=== PATIENT | female | born 1950 | race Caucasian/White ===

== ENCOUNTER 2017-04-03 16:24 | Emergency (ER) | payer MEDICARE, OTHER ==
[2017-04-03] MEDS ORDERED: Acetaminophen/HYDROcodone 325-10 MG Tab PO ONE (16:25)
[2017-04-03 16:56] VITALS: BP 141/59
--- NOTE | 2017-04-03 18:59 | EDM.PDOC ---
<Justin Lyman - Last Filed: 04/03/17 18:54> ED HPI GENERAL MEDICAL PROBLEM - General Chief Complaint: Back Pain or Injury Stated Complaint: LOWER BACK PAINS [id number] Time Seen by Provider: 04/03/17 18:54 Source of Information: Reports: Patient History Limitations: Reports: No Limitations - History of Present Illness INITIAL COMMENTS - FREE TEXT/NARRATIVE: 66 yo white female c/o low back pain on 7 days ago. PMHx. Lumbar DDD ( Chronic) . Pt. also concerned about UTI Onset Date: 03/29/17 Onset Time: 12:00 Duration: Day(s):, Getting Worse Location: Reports: Back (low back) Quality: Reports: Ache Severity: Moderate Improves with: Reports: None Worsens with: Reports: None Context: Reports: Other (Hx. of Spondylithesis) Associated Symptoms: Reports: No Other Symptoms Lower Back Pain Score (Numeric/FACES): 10 - Related Data Allergies Allergy/AdvReac Type Severity Reaction Status Date / Time Sulfa (Sulfonamide Allergy Rash Verified 04/03/17 16:43 Antibiotics) Home Meds: Home Meds Ca Carbonate/Vitamin D3/Vit K [Calcium + D Soft Chewable Tab] 1 each PO DAILY [History] Citalopram Hydrobromide [Celexa] 40 mg PO DAILY 04/03/17 [History] Nitrofurantoin Lares/Macrocryst [Macrobid] 1 cap PO BID 04/03/17 [History] Omeprazole 20 mg PO DAILY 04/03/17 [History] methylPREDNISolone [Medrol] 1 tab PO ASDIRECTED 04/03/17 [History] traMADol [Ultram] 50 mg PO Q6H PRN 04/03/17 [History] Past Medical History HEENT History: Reports: Cataract, Impaired Vision Cardiovascular History: Reports: None Respiratory History: Reports: Asthma Gastrointestinal History: Reports: GERD Genitourinary History: Reports: None 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 Musculoskeletal History: Reports: Arthritis, Fracture, Other (See Below) Other Musculoskeletal History: spondylolisthesis, TMJ Neurological History: Reports: Headaches, Chronic Psychiatric History: Reports: Depression Endocrine/Metabolic History: Reports: None Hematologic History: Reports: Blood Transfusion(s) Immunologic History: Reports: None Oncologic (Cancer) History: Reports: Malignant Melanoma Dermatologic History: Reports: Eczema, Psoriasis - Infectious Disease History Infectious Disease History: Reports: Chicken Pox, Measles - Past Surgical History HEENT Surgical History: Reports: None Cardiovascular Surgical History: Reports: None Respiratory Surgical History: Reports: None GI Surgical History: Reports: Appendectomy Female Surgical History: Reports: Hysterectomy, Oophorectomy Endocrine Surgical History: Reports: Other (See Below) Other Endocrine Surgeries/Procedures: goiter removed Neurological Surgical History: Reports: None Musculoskeletal Surgical History: Reports: None Oncologic Surgical History: Reports: None Dermatological Surgical History: Reports: None Social & Family History - Tobacco Use Smoking Status *Q: Never Smoker - Caffeine Use Caffeine Use: Reports: Coffee, Tea - Alcohol Use Days Per Week of Alcohol Use: 1 Number of Drinks Per Day: 2 Total Drinks Per Week: 2 - Recreational Drug Use Recreational Drug Use: No ED ROS GENERAL - Review of Systems Review Of Systems: See Below Constitutional: Reports: No Symptoms HEENT: Reports: No Symptoms Respiratory: Reports: No Symptoms Cardiovascular: Reports: No Symptoms Endocrine: Reports: No Symptoms GI/Abdominal: Reports: No Symptoms : Reports: Frequency Musculoskeletal: Reports: Back Pain Skin: Reports: No Symptoms Neurological: Reports: Tingling (bilat lower extremity) Psychiatric: Reports: No Symptoms Hematologic/Lymphatic: Reports: No Symptoms Immunologic: Reports: No Symptoms ED EXAM,LOWER BACK PAIN/INJURY - Physical Exam Exam: See Below Exam Limited By: No Limitations General Appearance: Alert, WD/WN, No Apparent Distress Eye Exam: Bilateral Eye: PERRL Ears: Normal External Exam Nose: Normal Inspection Throat/Mouth: Normal Inspection Head: Atraumatic, Normocephalic Neck: Normal Inspection, Supple Respiratory/Chest: No Respiratory Distress Cardiovascular: Normal Peripheral Pulses, Regular Rate, Rhythm GI/Abdominal: Normal Bowel Sounds Back Exam: Normal Inspection, Decreased Range of Motion, Vertebral Tenderness Extremities: Normal Inspection, Normal Range of Motion Neurological: Alert, Normal Mood/Affect, Normal Dorsiflexion, CN II-XII Intact DTR - Lower Extremities: 2+: Knee (R), Knee (L) Psychiatric: Normal Affect Skin Exam: Warm, Dry Lymphatic: No Adenopathy Course - Vital Signs Last Recorded V/S: Last Vital Signs Temp 97.6 F 04/03/17 16:53 Pulse 70 04/03/17 16:53 Resp 16 04/03/17 16:53 BP 141/59 H 04/03/17 16:53 Pulse Ox 97 04/03/17 16:53 - Orders/Labs/Meds Labs: Laboratory Tests 04/03/17 Range/Units 18:11 Urine Color Yellow (YELLOW) Urine Appearance Slightly cloudy (CLEAR) Urine pH 5.5 (5.0-9.0) Ur Specific [place] 1.020 (1.005-1.030) Urine Protein Negative (NEGATIVE) Urine Glucose (UA) Negative (NEGATIVE) Urine Ketones Trace H (NEGATIVE) Urine Occult Blood Small H (NEGATIVE) Urine Nitrite Negative (NEGATIVE) Urine Bilirubin Negative (NEGATIVE) Urine Urobilinogen 0.2 (0.2-1.0) mg/dL Ur Leukocyte Esterase Negative (NEGATIVE) Urine RBC 5-10 H /HPF Urine WBC 0-5 (0-5/HPF) /HPF Ur Epithelial Cells Moderate H /HPF Urine Bacteria Moderate H (0-FEW/HPF) /HPF Urine Mucus Moderate H /LPF Urine Yeast Few H (0/HPF) /HPF Departure - Departure Disposition: Home, Self-Care 01 Clinical Impression: Acute exacerbation of chronic low back pain Degenerative disc disease Qualifiers: Spinal region: lumbar Qualified Code(s): M51.36 - Other intervertebral disc degeneration, lumbar region - Discharge Information Instructions: Back Pain, Adult, [id number] Forms: ED Department Discharge Additional Instructions: follow up in clinic on Thursday rest alternate heat and cold hydrocodone one every 6 hours as needed for severe pain #14 stop medrol dose pack Prednisone 20mg daily for 5 days urgent follow up if change in sensation, incontinence of bowel or bladder, fever \ <Lazara Lu - Last Filed: 04/03/17 21:26> Departure - Departure Time of Disposition: 21:22 Condition: Fair
[2017-04-03] MEDS ORDERED: Acetaminophen/HYDROcodone 325-10 MG Tab ONE (21:27)
== END 2017-04-03 21:36 | disposition home or self-care (01) ==
LOC: DL.ED 16:24
DX: M51.36 Other intervertebral disc degeneration, lumbar region (principal); K21.9 Gastro-esophageal reflux disease without esophagitis; F32.9 Major depressive disorder, single episode, unspecified; M19.90 Unspecified osteoarthritis, unspecified site; L40.9 Psoriasis, unspecified; Z85.820 Personal history of malignant melanoma of skin; Z88.2 Allergy status to sulfonamides; Z79.899 Other long term (current) drug therapy; Z90.710 Acquired absence of both cervix and uterus
CPT/HCPCS: 72131; 81001; 99284; A9270-GY

== ENCOUNTER 2017-08-18 01:40 | Emergency (ER) | payer MEDICARE, OTHER ==
[2017-08-18] MEDS ORDERED: Ondansetron 4 MG Tab.DIS PO ONE (01:41)
[2017-08-18] MEDS ORDERED: Sodium Chloride 0.9% 1,000 ML IV ONE (02:08)
[2017-08-18] MEDS ORDERED: Ondansetron 4 MG/2 ML SDV IV ONE (02:08)
[2017-08-18] MEDS ORDERED: Sodium Chloride 0.9% 10 ML Syringe FLUSH PRN (02:08)
--- NOTE | 2017-08-18 02:17 | EDM.PDOC ---
ED HPI GENERAL MEDICAL PROBLEM - General Chief Complaint: Gastrointestinal Problem Stated Complaint: SANDRITA [id number] Time Seen by Provider: 08/18/17 01:55 Source of Information: Reports: Patient, RN, RN Notes Reviewed History Limitations: Reports: No Limitations - History of Present Illness INITIAL COMMENTS - FREE TEXT/NARRATIVE: Pt presents to the ER with c/o N/V/D which began at approximately 4pm on Thursday. She states she began with explosive diarrhea several times. She states the color of the stool was yellow. She states she began vomiting on Thursday at approximately 1pm. She states she has vomited until it is just dry heaves now. She admits to chills, but denies fever, chest pain or SOB. She states she has a history of TMJ and migraines, and is having pain in her jaw and orthodox area. She states she is also having a pain that comes and goes in her left upper arm. She states it is pinpoint. Pt has a history of low back injury in the with chronic low back pain. Onset: Sudden Onset Date: 08/16/17 Left Upper Arm Pain Score (Numeric/FACES): 10 - Related Data Allergies Allergy/AdvReac Type Severity Reaction Status Date / Time Sulfa (Sulfonamide Allergy Rash Verified 08/18/17 01:47 Antibiotics) Home Meds: Home Meds Ca Carbonate/Vitamin D3/Vit K [Calcium + D Soft Chewable Tab] 1 each PO DAILY [History] Citalopram Hydrobromide [Celexa] 20 mg PO DAILY 04/03/17 [History] Omeprazole 20 mg PO DAILY 04/03/17 [History] traMADol [Ultram] 50 mg PO Q6H PRN 04/03/17 [History] cycloSPORINE [Restasis] 1 drop EYEBOTH DAILY 08/14/17 [History] Past Medical History HEENT History: Reports: Cataract, Impaired Vision Cardiovascular History: Reports: None Respiratory History: Reports: Asthma Gastrointestinal History: Reports: GERD Genitourinary History: Reports: None 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 Musculoskeletal History: Reports: Arthritis, Fracture, Fibromyalgia, Other (See Below) Other Musculoskeletal History: spondylolisthesis, TMJ Neurological History: Reports: Headaches, Chronic Psychiatric History: Reports: Anxiety, Depression Endocrine/Metabolic History: Reports: Other (See Below) Other Endocrine/Metabolic History: lemon sized thyroid growth (1963) Hematologic History: Reports: Blood Transfusion(s) Immunologic History: Reports: None Oncologic (Cancer) History: Reports: Malignant Melanoma Dermatologic History: Reports: Eczema, Psoriasis - Infectious Disease History Infectious Disease History: Reports: Chicken Pox, Measles - Past Surgical History HEENT Surgical History: Reports: Adenoidectomy, Naso-Sinus Surgery, Tonsillectomy, Other (See Below) Other HEENT Surgeries/Procedures: probing of tear ducts Cardiovascular Surgical History: Reports: None Respiratory Surgical History: Reports: None GI Surgical History: Reports: Appendectomy Female Surgical History: Reports: Breast Biopsy, Hysterectomy, Oophorectomy Endocrine Surgical History: Reports: Other (See Below) Other Endocrine Surgeries/Procedures: goiter removed Neurological Surgical History: Reports: None Musculoskeletal Surgical History: Reports: None Oncologic Surgical History: Reports: None Dermatological Surgical History: Reports: None Social & Family History - Tobacco Use Smoking Status *Q: Never Smoker Second Hand Smoke Exposure: No - Caffeine Use Caffeine Use: Reports: Coffee, Tea - Alcohol Use Days Per Week of Alcohol Use: 1 Number of Drinks Per Day: 2 Total Drinks Per Week: 2 - Recreational Drug Use Recreational Drug Use: No ED ROS GENERAL - Review of Systems Review Of Systems: ROS reveals no pertinent complaints other than HPI. ED EXAM, GI/ABD - Physical Exam Exam: See Below Exam Limited By: No Limitations General Appearance: Alert, WD/WN, No Apparent Distress Eyes: Bilateral: EOMI Ears: Normal External Exam, Hearing Grossly Normal Nose: Normal Inspection Throat/Mouth: Normal Inspection, Normal Voice, No Airway Compromise, Other (dry mucous membranes) Head: Atraumatic, Normocephalic Neck: Normal Inspection, Supple, Non-Tender, Full Range of Motion Respiratory/Chest: No Respiratory Distress, Lungs Clear, Normal Breath Sounds, No Accessory Muscle Use, Chest Non-Tender Cardiovascular: Normal Peripheral Pulses, Regular Rate, Rhythm, No Edema, No Gallop, No JVD, No Murmur, No Rub GI/Abdominal Exam: Normal Bowel Sounds, Soft, Non-Tender, No Organomegaly, No Distention, No Abnormal Bruit, No Mass, Tender (Female) Exam: Deferred Rectal (Female) Exam: Deferred Back Exam: Normal Inspection, Decreased Range of Motion Extremities: Normal Inspection, Normal Range of Motion, Non-Tender, No Pedal Edema, Normal Capillary Refill, Arm Pain (left upper arm, comes and goes "zinging") Neurological: Alert, Oriented, CN II-XII Intact, Normal Cognition, Normal Gait, Normal Reflexes, No Motor/Sensory Deficits Psychiatric: Normal Affect, Normal Mood Skin Exam: Warm, Dry, Intact, No Rash, Pallor Lymphatic: No Adenopathy EKG INTERPRETATION EKG Date: 08/18/17 Time: 01:42 Rhythm: NSR Rate (Beats/Min): 95 [place]: LAD-Left [place] Deviation P-Wave: Present QRS: Normal ST-T: Normal QT: Normal Comparison: NA - No Prior EKG Course - Vital Signs Last Recorded V/S: Last Vital Signs Temp 96.8 F 08/18/17 01:43 Pulse 116 H 08/18/17 01:43 Resp 18 08/18/17 01:43 BP 150/82 H 08/18/17 01:43 Pulse Ox 95 08/18/17 01:43 - Orders/Labs/Meds Orders: Active Orders 24 hr Category Date Time Status EKG Documentation Completion [RC] STAT Care 08/18/17 02:08 Active Peripheral IV Care [RC] . DIRECTED Care 08/18/17 02:09 Active UA W/MICROSCOPIC [URIN] Stat Lab 08/18/17 02:08 Ordered Sodium Chloride 0.9% [Saline Flush] Med 08/18/17 02:08 Active 10 ml FLUSH ASDIRECTED PRN Peripheral IV Insertion Adult [OM.PC] Stat Oth 08/18/17 02:08 Ordered Medication Orders Sodium Chloride (Saline Flush) 10 ml FLUSH ASDIRECTED PRN PRN Reason: Keep Vein Open Last Admin: 08/18/17 02:21 Dose: 10 ml Labs: Laboratory Tests 08/18/17 08/18/17 Range/Units 01:55 01:55 WBC 12.3 H (5.0-10.0) 10^3/uL RBC 5.22 (4.2-5.4) 10^6/uL Hgb 15.6 (12.0-16.0) g/dL Hct 45.8 (37.0-47.0) % MCV 87.7 (80-100) fL MCH 29.9 (27.0-34.0) pg MCHC 34.1 (33.0-35.0) g/dL Plt Count 268 (150-450) 10^3/uL Neut % (Auto) 79.9 H (42.2-75.2) % Lymph % (Auto) 10.7 L (20.5-50.1) % [place] % (Auto) 9.1 H (2-8) % Eos % (Auto) 0.2 L (1.0-3.0) % Baso % (Auto) 0.1 (0.0-1.0) % Sodium 132 L (135-145) mmol/L Potassium 3.6 (3.6-5.0) mmol/L Chloride 99 L (101-111) mmol/L Carbon Dioxide 20.0 L (21.0-31.0) mmol/L Anion Gap 16.6 BUN 15 (7-18) mg/dL Creatinine 1.0 (0.6-1.3) mg/dL Est Cr Clr Drug Dosing 50.47 mL/min Estimated GFR (MDRD) 56 BUN/Creatinine Ratio 15.00 Glucose 124 H (74-105) mg/dL Calcium 9.3 (8.4-10.2) mg/dl Total Bilirubin 1.3 H (0.2-1.0) mg/dL AST 25 (10-42) IU/L ALT 15 (10-60) IU/L Alkaline Phosphatase 66 (42-121) IU/L Troponin I < 0.02 (0.00-0.02) ng/ml Total Protein 8.0 (6.7-8.2) g/dl Albumin 4.5 (3.2-5.5) g/dl Globulin 3.5 Albumin/Globulin Ratio 1.29 Meds: Medications Generic Name Dose Route Start Last Admin Trade Name Freq PRN Reason Stop Dose Admin Sodium Chloride 10 ml 08/18/17 02:08 08/18/17 02:21 Saline Flush FLUSH 10 ml ASDIRECTED PRN Administration Keep Vein Open Discontinued Medications Generic Name Dose Route Start Last Admin Trade Name Freq PRN Reason Stop Dose Admin Sodium Chloride 1,000 mls @ 999 mls/hr 08/18/17 02:08 08/18/17 02:21 Normal Saline IV 08/18/17 03:08 999 mls/hr .BOLUS ONE Administration Ondansetron HCl 4 mg 08/18/17 02:08 08/18/17 02:21 Zofran IV 08/18/17 02:09 4 mg ONETIME ONE Administration Ondansetron HCl Confirm 08/18/17 03:04 08/18/17 03:07 Zofran Odt Administered 08/18/17 03:05 Not Given Dose 8 mg .ROUTE .STK-MED ONE Departure - Departure Time of Disposition: 03:08 Disposition: Home, Self-Care 01 Condition: Fair Clinical Impression: Gastroenteritis - Discharge Information Instructions: Viral Gastroenteritis, Adult, [id number], Food Choices to Help Relieve Diarrhea, Adult, Nausea and Vomiting, Adult, Emil-yz-Miki, Dehydration, Adult, Mhhi-pb-Pwxd, Diarrhea, Adult, Fllg-ct-Jefu Forms: ED Department Discharge Additional Instructions: RX: Zofran ODT Sips of water only as tolerated, or ice chips Follow up with your primary care facility if no improvement. May use Imodium or generic like as directed for diarrhea. - My Orders Last 24 Hours: My Active Orders 08/18/17 02:08 EKG Documentation Completion [RC] STAT UA W/MICROSCOPIC [URIN] Stat Sodium Chloride 0.9% [Saline Flush] 10 ml FLUSH ASDIRECTED PRN Peripheral IV Insertion Adult [OM.PC] Stat 08/18/17 02:09 Peripheral IV Care [RC] . DIRECTED - Assessment/Plan Last 24 Hours: My Active Orders 08/18/17 02:08 EKG Documentation Completion [RC] STAT UA W/MICROSCOPIC [URIN] Stat Sodium Chloride 0.9% [Saline Flush] 10 ml FLUSH ASDIRECTED PRN Peripheral IV Insertion Adult [OM.PC] Stat 08/18/17 02:09 Peripheral IV Care [RC] . DIRECTED
[2017-08-18 02:32] LABS: CHLORIDE,CL 99 mmol/L (101-111); SODIUM,NA 132 mmol/L (135-145)
[2017-08-18] MEDS ORDERED: Ondansetron 4 MG Tab.DIS ONE (03:04)
[2017-08-18 03:35] VITALS: BP 129/51
--- NOTE | 2017-08-20 08:08 | EKG ---
08/18/2017 - CATY CLARK - FINDINGS: This 12-lead EKG shows a normal sinus rhythm with a ventricular rate of 95. Borderline left axis deviation. No acute ST-T wave elevations, but diffuse nonspecific T-wave abnormalities are seen in multiple leads. [facility] /[id number] MTDD
== END 2017-08-18 03:29 | disposition home or self-care (01) ==
LOC: DL.ED 01:40
DX: K52.9 Noninfective gastroenteritis and colitis, unspecified (principal); Z88.2 Allergy status to sulfonamides; Z79.899 Other long term (current) drug therapy
CPT/HCPCS: 36415; 80053; 84484; 85025; 93005; 93010; 96361; 96374; 99284; A9270; J2405; J7030; J7050

== ENCOUNTER 2017-08-19 10:54 | Day surgery (SDC) | payer MEDICARE, OTHER ==
[2017-08-19] MEDS ORDERED: Dexamethasone 4 MG/ML SDV IV ONE (10:55)
[2017-08-19] MEDS ORDERED: Midazolam 1 MG/ML 2 ML SDV IV ONE (10:55)
[2017-08-19] MEDS ORDERED: Sodium Chloride 0.9% 10 ML Syringe IV ONE (10:55)
[2017-08-19] MEDS ORDERED: Ondansetron 4 MG/2 ML SDV IVPUSH PRN (11:00)
[2017-08-19] MEDS ORDERED: Phenylephrine 10% Ophth Soln 5 ML Bot EYERT PRN (11:00)
[2017-08-19] MEDS ORDERED: Acetaminophen 325 MG Tab PO PRN (11:00)
[2017-08-19] MEDS: Proparacaine 0.5% Ophth Soln 15 ML Bottle EYERT ONE (11:05)
[2017-08-19] MEDS: Povidone-Iodine 5% Sterile Ophth Soln 30 ML Bottle EYERT ONE (11:07)
[2017-08-19] MEDS: Moxifloxacin 0.5% Ophth Soln 3 ML Bottle EYERT ONE (11:08)
[2017-08-19] MEDS: Phenylephrine 10% Ophth Soln 5 ML Bot EYERT ONE ×2 (11:09→11:50)
[2017-08-19] MEDS: Timolol Maleate 0.5% Ophth Soln 5 ML Bottle EYERT ONE (11:11)
[2017-08-19] MEDS: Cataract Ophth Solution EYERT ONE (11:12)
[2017-08-19] MEDS: Sodium Chloride 0.9% 10 ML Syringe FLUSH PRN (11:25)
[2017-08-19] MEDS: Apraclonidine 0.5% Ophth Soln 5 ML Bot EYERT ONE (11:50)
[2017-08-19] MEDS: Vancomycin 500 MG SDV EYERT ONE (11:50)
[2017-08-19] MEDS: Lidocaine 1% 30 ML SDV ONE (11:50)
[2017-08-19] MEDS: Diclofenac Sodium 0.1% Ophth Soln 5 ML Bottle EYERT ONE (11:50)
[2017-08-19] MEDS: Balanced Salt Solution Ophth Irrig 500 ML Bottle IOCULAR ONE (11:50)
[2017-08-19] MEDS: Chondroitin Sulfate/Hyaluronate Sodium Ophth Inj 0.5 ML Syringe IOCULAR ONE (11:50)
[2017-08-19] MEDS: Tetracaine HCl/PF 0.5% 4 ML Bottle EYERT ONE (11:50)
[2017-08-19] MEDS: Dexamethasone/Tobramycin 0.1-0.3% Ophth Oint 3.5 GM Tube EYERT ONE (11:50)
[2017-08-19 14:32] VITALS: BP 109/57
--- NOTE | 2017-08-20 07:02 | OR ---
DATE: 08/19/2017 PREOPERATIVE DIAGNOSIS: Visually significant mixed cataract, right eye. POSTOPERATIVE DIAGNOSIS: Visually significant mixed cataract, right eye. PROCEDURE: Extracapsular cataract extraction with intraocular lens implant, right eye. ANESTHESIA: Topical/local MAC. COMPLICATIONS: None. INDICATION: Mrs. Pulido was seen in the clinic with complaints of difficulty reading, difficulty seeing road signs, and a slow change in vision. Clinical examination revealed visually significant mixed nuclear and cortical cataract, age related. I explained options. I offered cataract surgery and I explained risks. She is symptomatic and requested surgery to reduce symptoms and improve vision and function. We discussed implant options and she requested a Toric implant. OPERATIVE DESCRIPTION: After informed consent was obtained and the risks, benefits, and alternatives were explained, the patient was brought to the operative suite and topical anesthesia was administered. The patient was then prepped and draped in the sterile fashion and attention was placed on the right eye. A sterile lid speculum was placed into the right eye to allow operative exposure. A full-thickness paracentesis was made in the temporal portion of the operative eye. Preservative-free lidocaine 0.1 mL was injected into the anterior chamber followed by viscoelastic. A full-thickness corneal incision was then made into the anterior chamber. A bent needle cystotome was used to create a small shine in the anterior capsule. The capsulorrhexis forceps were then used to create a 360-degree curvilinear capsulorrhexis. The nucleus was then removed using a phacoemulsification handpiece and the remaining cortical material was then removed with irrigation and aspiration handpiece. Following removal of the cortical material, the capsular bag was then inspected and noted to be free of any holes or tears. Viscoelastic was then injected into the capsular bag and the intraocular lens was inserted into the capsular bag. The implant was oriented to correspond with preoperative corneal grey made with the patient in the upright position. The viscoelastic material was then removed from both the anterior and posterior chambers and from behind the IOL. The lens and capsular bag were then reinspected. The IOL was well centered and the capsular bag intact. The wound and paracentesis sites were inspected and hydrated with balanced saline solution. Both were found to be self-sealing. The intraocular pressure was assessed digitally and found to be within normal range. A good red reflex was noted at the completion of the procedure. No complications occurred during the operation. At the completion of the procedure, Zonia Salazar and Iopidine drops were placed into the operative eye. A sterile eye shield was placed over the operative eye and the patient was transported to the postoperative recovery area having tolerated the procedure well. Postoperative instructions were given along with a postoperative appointment. The patient was advised to call with any questions or concerns. [facility] /[id number]
== END 2017-08-19 13:05 | disposition home or self-care (01) ==
LOC: DL.SDS 10:54
PROVIDERS: ATTEND Ophthalmology
DX: H25.811 Combined forms of age-related cataract, right eye (principal); F32.9 Major depressive disorder, single episode, unspecified; G47.30 Sleep apnea, unspecified; E55.9 Vitamin D deficiency, unspecified; Z90.710 Acquired absence of both cervix and uterus; Z88.2 Allergy status to sulfonamides; Z79.899 Other long term (current) drug therapy
CPT/HCPCS: 00142; 66984; A9270; C1780; J1100; J2250; J3370; J7050

== ENCOUNTER 2017-08-26 07:04 | Day surgery (SDC) | payer MEDICARE, OTHER ==
[~2017-08-26 07:04] MED LIST: Acetaminophen 325 MG Tab PO PRN; Cataract Ophth Solution EYELF ONE; Moxifloxacin 0.5% Ophth Soln 3 ML Bottle EYELF ONE; Ondansetron 4 MG/2 ML SDV IVPUSH PRN; Phenylephrine 10% Ophth Soln 5 ML Bot EYELF ONE; Phenylephrine 10% Ophth Soln 5 ML Bot EYELF PRN; Povidone-Iodine 5% Sterile Ophth Soln 30 ML Bottle EYELF ONE; Proparacaine 0.5% Ophth Soln 15 ML Bottle EYELF ONE; Sodium Chloride 0.9% 10 ML Syringe FLUSH PRN; Timolol Maleate 0.5% Ophth Soln 5 ML Bottle EYELF ONE
[2017-08-26] MEDS ORDERED: Dexamethasone 4 MG/ML SDV IV ONE (07:05)
[2017-08-26] MEDS ORDERED: Midazolam 1 MG/ML 2 ML SDV IV ONE (07:05)
[2017-08-26] MEDS ORDERED: Sodium Chloride 0.9% 10 ML Syringe IV ONE (07:05)
[2017-08-26] MEDS ORDERED: Lidocaine 1% 30 ML SDV ONE (08:07)
[2017-08-26] MEDS ORDERED: Povidone-Iodine 5% Sterile Ophth Soln 30 ML Bottle EYELF ONE (08:07)
[2017-08-26] MEDS ORDERED: Tetracaine HCl/PF 0.5% 4 ML Bottle EYELF ONE (08:07)
[2017-08-26] MEDS ORDERED: Vancomycin 500 MG SDV EYELF ONE (08:08)
[2017-08-26] MEDS ORDERED: Balanced Salt Solution Ophth Irrig 500 ML Bottle IOCULAR ONE (08:08)
[2017-08-26] MEDS ORDERED: Apraclonidine 0.5% Ophth Soln 5 ML Bot EYELF ONE (08:08)
[2017-08-26] MEDS ORDERED: Dexamethasone/Tobramycin 0.1-0.3% Ophth Oint 3.5 GM Tube EYELF ONE (08:08)
[2017-08-26] MEDS ORDERED: Chondroitin Sulfate/Hyaluronate Sodium Ophth Inj 0.5 ML Syringe IOCULAR ONE (08:09)
--- NOTE | 2017-08-26 08:30 | OR ---
DATE: 08/26/2017 PREOPERATIVE DIAGNOSIS: Visually significant mixed cataract, left eye. POSTOPERATIVE DIAGNOSIS: Visually significant mixed cataract, left eye. PROCEDURE: Extracapsular cataract extraction with intraocular lens implant, left eye. ANESTHESIA: Topical/local MAC. COMPLICATIONS: None. INDICATION: Mrs. Pulido was seen in the clinic with complaints of blurred vision. Clinical examination reveals visually significant mixed cataract. I explained options. I offered cataract surgery and I explained risks including the potential for infection, retinal detachment, loss of vision, need for additional surgery, amongst others. We discussed implant options. She has requested a monofocal implant. She understands that she may require glasses for some limited activities. OPERATIVE DESCRIPTION: After informed consent was obtained and the risks, benefits, and alternatives were explained, the patient was brought to the operative suite and topical anesthesia was administered. The patient was then prepped and draped in the sterile fashion and attention was placed on the left eye. A sterile lid speculum was placed into the left eye to allow operative exposure. A full-thickness paracentesis was made in the temporal portion of the operative eye. Preservative-free lidocaine 0.1 mL was injected into the anterior chamber followed by viscoelastic. A full-thickness corneal incision was then made into the anterior chamber. A bent needle cystotome was used to create a small shine in the anterior capsule. The capsulorrhexis forceps was then used to create a 360-degree curvilinear capsulorrhexis. The nucleus was then removed using a phacoemulsification handpiece and the remaining cortical material was then removed with irrigation and aspiration handpiece. Following removal of the cortical material, the capsular bag was then inspected and noted to be free of any holes or tears. Viscoelastic was then injected into the capsular bag and the intraocular lens was inserted into the capsular bag. The viscoelastic material was then removed from both the anterior and posterior chambers and from behind the IOL. The lens and capsular bag were then reinspected. The IOL was well centered and the capsular bag intact. The wound and paracentesis sites were inspected and hydrated with balanced saline solution. Both were found to be self- sealing. The intraocular pressure was assessed digitally and found to be within normal range. A good red reflex was noted at the completion of the procedure. No complications occurred during the operation. At the completion of the procedure, Maxitrol, Voltaren, and Iopidine drops were placed into the operative eye. A sterile eye shield was placed over the operative eye and the patient was transported to the postoperative recovery area having tolerated the procedure well. Postoperative instructions were given along with a postoperative appointment. The patient was advised to call with any questions or concerns. No complications occurred. [facility] /[id number]
[2017-08-26 11:07] VITALS: BP 137/65
== END 2017-08-26 09:19 | disposition home or self-care (01) ==
LOC: DL.SDS 07:04
PROVIDERS: ATTEND Ophthalmology
DX: H25.812 Combined forms of age-related cataract, left eye (principal); F32.9 Major depressive disorder, single episode, unspecified; G47.30 Sleep apnea, unspecified; E55.9 Vitamin D deficiency, unspecified; Z90.710 Acquired absence of both cervix and uterus; Z90.49 Acquired absence of other specified parts of digestive tract; Z88.2 Allergy status to sulfonamides; Z79.899 Other long term (current) drug therapy
CPT/HCPCS: 00142; 66984; A9270; J1100; J2250; J3370; J7050; V2632

== ENCOUNTER 2017-12-11 17:30 | Emergency (ER) | payer MEDICARE, OTHER ==
[2017-12-11 17:43] VITALS: BP 155/67
[2017-12-11] MEDS ORDERED: Ketorolac 30 MG/ML SDV IM ONE (18:03)
[2017-12-11] MEDS ORDERED: Cyclobenzaprine 10 MG Tab PO ONE (18:03)
[2017-12-11] MEDS ORDERED: LORazepam 1 MG Tab PO ONE (18:03)
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
== END 2017-12-11 18:41 ==
LOC: DL.ED 17:30
DX: F41.0 Panic disorder [episodic paroxysmal anxiety] (principal); F32.9 Major depressive disorder, single episode, unspecified; K21.9 Gastro-esophageal reflux disease without esophagitis; Z79.899 Other long term (current) drug therapy; Z88.2 Allergy status to sulfonamides
CPT/HCPCS: 96372; 99283; A9270; J1885

== ENCOUNTER 2019-06-22 17:52 | Emergency (ER) | payer MEDICARE, OTHER ==
[2019-06-22 18:18] VITALS: BP 118/73; PULSE 81
[2019-06-22] MEDS ORDERED: Lidocaine 1% 10 ML MDV INJECT ONE (18:18)
[2019-06-22] MEDS ORDERED: Bacitracin Oint 1 GM U/D Packet TOP ONE (18:19)
[2019-06-22] MEDS ORDERED: Lidocaine 1% 30 ML SDV ONE (18:22)
[2019-06-22] MEDS ORDERED: Lidocaine 1% 30 ML SDV INJECT ONE (18:24)
--- NOTE | 2019-06-22 18:35 | EDM.PDOC ---
ED HPI GENERAL MEDICAL PROBLEM - General Chief Complaint: Laceration Stated Complaint: LEFT INDEX FINGER LACERATION Time Seen by Provider: 06/22/19 18:15 Source of Information: Reports: Patient, RN History Limitations: Reports: No Limitations - History of Present Illness INITIAL COMMENTS - FREE TEXT/NARRATIVE: 69 year old female who present to the ER with laceration on her left index finger x 30 minutes ago. Patient reports cutting a portion of fat on pork ribs when the knife cut his finger.Bleeding was controlled with pressure. Patient is not aware of her tetanus status. - Related Data Allergies Allergy/AdvReac Type Severity Reaction Status Date / Time Sulfa (Sulfonamide Allergy Rash Verified 06/22/19 18:02 Antibiotics) Home Meds: Home Meds Citalopram Hydrobromide [Celexa] 20 mg PO DAILY 04/03/17 [History] Omeprazole 20 mg PO DAILY 04/03/17 [History] traMADol [Ultram] 50 mg PO Q6H PRN 04/03/17 [History] cycloSPORINE [Restasis] 1 drop EYEBOTH DAILY 08/14/17 [History] Calcium Carbonate/Vitamin D3 [Calcium 1,000 + D3 Caplet] 1 tab PO DAILY [History] prednisoLONE acetate [Pred Forte 1% Ophth Susp] 1 drop EYEBOTH ASDIRECTED [History] Past Medical History HEENT History: Reports: Cataract, Impaired Vision Cardiovascular History: Reports: None Respiratory History: Reports: Asthma Gastrointestinal History: Reports: GERD Genitourinary History: Reports: None 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: 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: 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 Musculoskeletal History: Reports: Arthritis, Fracture, Fibromyalgia, Other (See Below) Other Musculoskeletal History: spondylolisthesis, TMJ Neurological History: Reports: Headaches, Chronic Psychiatric History: Reports: Anxiety, Depression Endocrine/Metabolic History: Reports: Other (See Below) Other Endocrine/Metabolic History: lemon sized thyroid growth (1963) Hematologic History: Reports: Blood Transfusion(s) Immunologic History: Reports: None Oncologic (Cancer) History: Reports: Malignant Melanoma Dermatologic History: Reports: Eczema, Psoriasis - Infectious Disease History Infectious Disease History: Reports: Chicken Pox, Measles - Past Surgical History HEENT Surgical History: Reports: Adenoidectomy, Cataract Surgery, Naso-Sinus Surgery, Tonsillectomy, Other (See Below) Other HEENT Surgeries/Procedures: probing of tear ducts. S/P CATARACT EXTRACTION LENS PLACEMENT IN RIGHT EYE Cardiovascular Surgical History: Reports: None Respiratory Surgical History: Reports: None GI Surgical History: Reports: Appendectomy Female Surgical History: Reports: Breast Biopsy, Hysterectomy, Oophorectomy Endocrine Surgical History: Reports: Other (See Below) Other Endocrine Surgeries/Procedures: goiter removed Neurological Surgical History: Reports: None Musculoskeletal Surgical History: Reports: None Oncologic Surgical History: Reports: None Dermatological Surgical History: Reports: None Social & Family History - Family History Family Medical History: Noncontributory HEENT: Reports: Cataract - Tobacco Use Smoking Status *Q: Never Smoker - Caffeine Use Caffeine Use: Reports: Coffee - Recreational Drug Use Recreational Drug Use: No ED ROS GENERAL - Review of Systems Review Of Systems: Comprehensive ROS is negative, except as noted in HPI. ED EXAM, SKIN/RASH Exam: See Below Exam Limited By: No Limitations General Appearance: Alert Location, Skin: Upper Extremity, Left (1,2 curved laceration noted on the left ) Lymphatic: No Adenopathy ED SKIN PROCEDURES - Laceration/Wound Repair Left Digit - 2nd (Index) Appearance: Superficial, Irregular Distal NVT: No Tendon Injury Anesthetic Type: Local Local Anesthesia - Lidocaine (Xylocaine): 1% Plain Local Anesthetic Volume: 2cc Skin Prep: Providone-Iodine (Betadine) Exploration/Debridement/Repair: Wound Explored Closed with: Sutures Lac/Wound length In cm: 1.2 Suture Size: 5-0 # of Sutures: 3 Suture Type: Interrupted Tetanus Status Addressed: Other (Adminstered) Complications: No - Joint Reduction Site: Finger (L) Sedation: Digital Block Local Anesthesia - Lidocaine (Xylocaine): 1% Plain Local Anesthetic Volume: 3cc Number of Attempts: 1 Course - Vital Signs Last Recorded V/S: Last Vital Signs Temp 98 F 06/22/19 18:00 Pulse 81 06/22/19 18:00 Resp 16 06/22/19 18:00 BP 118/73 06/22/19 18:00 Pulse Ox 98 06/22/19 18:00 - Orders/Labs/Meds Meds: Medications Discontinued Medications Generic Name Dose Route Start Last Admin Trade Name Freq PRN Reason Stop Dose Admin Bacitracin 1 dose 06/22/19 18:19 06/22/19 18:25 Bacitracin Oint 1 Gm TOP 06/22/19 18:20 1 dose ONETIME ONE Administration Lidocaine HCl 10 ml 06/22/19 18:18 06/22/19 18:25 Xylocaine 1% INJECT 06/22/19 18:19 Not Given ONETIME ONE Lidocaine HCl 30 ml 06/22/19 18:24 06/22/19 18:25 Xylocaine-Mpf 1% INJECT 06/22/19 18:25 30 ml ONETIME ONE Administration Lidocaine HCl Confirm 06/22/19 18:22 06/22/19 18:29 Xylocaine-Mpf 1% Administered 06/22/19 18:23 Not Given Dose 30 ml .ROUTE .STK-MED ONE Departure - Departure Time of Disposition: 19:05 Disposition: Refer to Observation Condition: Fair Clinical Impression: Laceration - Discharge Information *PRESCRIPTION DRUG MONITORING PROGRAM REVIEWED*: No *COPY OF PRESCRIPTION DRUG MONITORING REPORT IN PATIENT ALLY: No Instructions: Laceration Care, Adult, [id number] Referrals: [place] Hull, [employer] F[employer]NACE KEEPER [Primary Care Provider] - Forms: ED Department Discharge Additional Instructions: Follow up in the Clinic for stitches removal in 7 to 10 days. Sings to return for an evaluation reviewed with patient. She verbalized understanding. Sepsis Event Note - Evaluation Sepsis Screening Result: No Definite Risk - Focused Exam Date Exam was Performed: 06/26/19 Time Exam was Performed: 16:50
== END 2019-06-22 19:18 | disposition other institution (70) ==
LOC: DL.ED 17:52
DX: S61.211A Laceration without foreign body of left index finger without damage to nail, initial encounter (principal); W26.0XXA Contact with knife, initial encounter; H54.7 Unspecified visual loss; J45.909 Unspecified asthma, uncomplicated; K21.9 Gastro-esophageal reflux disease without esophagitis; M19.90 Unspecified osteoarthritis, unspecified site; M79.7 Fibromyalgia; F41.9 Anxiety disorder, unspecified; F32.9 Major depressive disorder, single episode, unspecified; Z85.820 Personal history of malignant melanoma of skin; Z98.41 Cataract extraction status, right eye; Z96.1 Presence of intraocular lens; Z88.2 Allergy status to sulfonamides; Z79.899 Other long term (current) drug therapy; Z90.710 Acquired absence of both cervix and uterus
CPT/HCPCS: 12001; 99282; J2001

== ENCOUNTER 2019-11-13 08:09 | Emergency (ER) | payer MEDICARE, OTHER ==
[2019-11-13 08:14] VITALS: BP 156/59; PULSE 78
--- NOTE | 2019-11-13 08:31 | EDM.PDOC ---
ED HPI GENERAL MEDICAL PROBLEM - General Chief Complaint: Genitourinary Problem Stated Complaint: POSSIBLE UTI Time Seen by Provider: 11/13/19 08:16 Source of Information: Reports: Patient History Limitations: Reports: No Limitations - History of Present Illness INITIAL COMMENTS - FREE TEXT/NARRATIVE: This 69 yo female patient reports to the ED with urinary frequency and burning with urination that woke the patient up this morning at 0630. The patient reports she has had a history of UTI's in the past. Onset: Today Duration: Constant Location: Reports: Abdomen Quality: Reports: Other Severity: Moderate Improves with: Reports: None Worsens with: Reports: None Context: Reports: Other Bladder Pain Score (Numeric/FACES): 6 - Related Data Allergies Allergy/AdvReac Type Severity Reaction Status Date / Time Sulfa (Sulfonamide Allergy Rash Verified 11/13/19 08:14 Antibiotics) Home Meds: Home Meds Citalopram Hydrobromide [Celexa] 20 mg PO DAILY 04/03/17 [History] Omeprazole 20 mg PO DAILY 04/03/17 [History] traMADol [Ultram] 50 mg PO Q6H PRN 04/03/17 [History] cycloSPORINE [Restasis] 1 drop EYEBOTH DAILY 08/14/17 [History] Calcium Carbonate/Vitamin D3 [Calcium 1,000 + D3 Caplet] 1 tab PO DAILY [History] prednisoLONE acetate [Pred Forte 1% Ophth Susp] 1 drop EYEBOTH ASDIRECTED [History] Past Medical History HEENT History: Reports: Cataract, Impaired Vision Cardiovascular History: Reports: None Respiratory History: Reports: Asthma Gastrointestinal History: Reports: GERD Genitourinary History: Reports: UTI, 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: 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: None Musculoskeletal History: Reports: Arthritis, Fracture, Fibromyalgia, Other (See Below) Other Musculoskeletal History: spondylolisthesis, TMJ Neurological History: Reports: Headaches, Chronic Psychiatric History: Reports: Anxiety, Depression Endocrine/Metabolic History: Reports: Other (See Below) Other Endocrine/Metabolic History: lemon sized thyroid growth (1963) Hematologic History: Reports: Blood Transfusion(s) Immunologic History: Reports: None Oncologic (Cancer) History: Reports: Malignant Melanoma Dermatologic History: Reports: Eczema, Psoriasis - Infectious Disease History Infectious Disease History: Reports: Chicken Pox, Measles - Past Surgical History HEENT Surgical History: Reports: Adenoidectomy, Cataract Surgery, Naso-Sinus Surgery, Tonsillectomy, Other (See Below) Other HEENT Surgeries/Procedures: probing of tear ducts. S/P CATARACT EXTRACTION LENS PLACEMENT IN RIGHT EYE Cardiovascular Surgical History: Reports: None Respiratory Surgical History: Reports: None GI Surgical History: Reports: Appendectomy Female Surgical History: Reports: Breast Biopsy, Hysterectomy, Oophorectomy Endocrine Surgical History: Reports: Other (See Below) Other Endocrine Surgeries/Procedures: goiter removed Neurological Surgical History: Reports: None Musculoskeletal Surgical History: Reports: None Oncologic Surgical History: Reports: None Dermatological Surgical History: Reports: None Social & Family History - Family History Family Medical History: Noncontributory HEENT: Reports: Cataract - Tobacco Use Smoking Status *Q: Never Smoker Second Hand Smoke Exposure: No - Caffeine Use Caffeine Use: Reports: Coffee - Recreational Drug Use Recreational Drug Use: No ED ROS GENERAL - Review of Systems Review Of Systems: Comprehensive ROS is negative, except as noted in HPI. ED EXAM, RENAL/ - Physical Exam Exam: See Below Exam Limited By: No Limitations General Appearance: Alert, WD/WN, Mild Distress Eye Exam: Bilateral Eye: EOMI, Normal Inspection, PERRL Ears: Normal External Exam, Normal Canal, Hearing Grossly Normal, Normal TMs Nose: Normal Inspection, Normal Mucosa, No Blood Throat/Mouth: Normal Inspection, Normal Lips, Normal Teeth, Normal Gums, Normal Oropharynx, Normal Voice, No Airway Compromise Head: Atraumatic, Normocephalic Neck: Normal Inspection, Supple, Non-Tender, Full Range of Motion Respiratory/Chest: No Respiratory Distress, Lungs Clear, Normal Breath Sounds, No Accessory Muscle Use, Chest Non-Tender Cardiovascular: Normal Peripheral Pulses, Regular Rate, Rhythm, No Edema, No Gallop, No JVD, No Murmur, No Rub GI/Abdominal: Normal Bowel Sounds, Soft, Non-Tender, No Organomegaly, No Distention, No Abnormal Bruit, No Mass (Female) Exam: Deferred Rectal (Female) Exam: Deferred Back Exam: Normal Inspection, Full Range of Motion, NT Extremities: Normal Inspection, Normal Range of Motion, Non-Tender, Normal Capillary Refill, No Pedal Edema Neurological: Alert, Oriented, CN II-XII Intact, Normal Cognition, Normal Gait, Normal Reflexes, No Motor/Sensory Deficits Psychiatric: Normal Affect, Normal Mood Skin Exam: Warm, Dry, Intact, Normal Color, No Rash Lymphatic: No Adenopathy Course - Vital Signs Last Recorded V/S: Last Vital Signs Temp 36.5 C 11/13/19 08:12 Pulse 78 11/13/19 08:12 Resp 18 11/13/19 08:12 BP 156/59 H 11/13/19 08:12 Pulse Ox 98 11/13/19 08:12 - Orders/Labs/Meds Orders: Active Orders 24 hr Category Date Time Status CULTURE URINE [RM] Urgent Lab 11/13/19 08:18 Received Labs: Laboratory Tests 11/13/19 Range/Units 08:18 Urine Color Yellow (YELLOW) Urine Appearance Turbid (CLEAR) Urine pH 5.5 (5.0-9.0) Ur Specific Central >= 1.030 (1.005-1.030) Urine Protein 100 H (NEGATIVE) Urine Glucose (UA) Negative (NEGATIVE) Urine Ketones Trace H (NEGATIVE) Urine Occult Blood Large H (NEGATIVE) Urine Nitrite Negative (NEGATIVE) Urine Bilirubin Small H (NEGATIVE) Urine Urobilinogen 0.2 (0.2-1.0) mg/dL Ur Leukocyte Esterase Moderate H (NEGATIVE) Urine RBC >100 H /HPF Urine WBC 50-75 H (0-5/HPF) /HPF Ur Epithelial Cells Few (NOT SEEN) /HPF Amorphous Sediment Few (NOT SEEN) /HPF Urine Bacteria Few (0-FEW/HPF) /HPF Urine Mucus Few H (NOT SEEN) /LPF Meds: Medications Discontinued Medications Generic Name Dose Route Start Last Admin Trade Name Freq PRN Reason Stop Dose Admin Nitrofurantoin Macrocrystals 100 mg 11/13/19 08:48 Macrobid PO 11/13/19 08:49 ONETIME ONE Departure - Departure Time of Disposition: 08:52 Disposition: Home, Self-Care 01 Condition: Fair Clinical Impression: UTI, Urinary tract infectious disease - Discharge Information *PRESCRIPTION DRUG MONITORING PROGRAM REVIEWED*: Not Applicable *COPY OF PRESCRIPTION DRUG MONITORING REPORT IN PATIENT ALLY: Not Applicable Instructions: Urinary Tract Infection, Adult, [id number] Forms: ED Department Discharge Care Plan Goals: The patient was advised of the examination and lab results during the visit. The patient was given an oral dose of Cipro and Pyridium while in the ED. The patient was discharged with a script for Macrobid (100 mg) to take 1 by mouth 2 times per day for 7 days. If the patient has any additional symptoms or concerns , the patient should follow-up with her primary care facility or return to the emergency department. Sepsis Event Note - Evaluation Sepsis Screening Result: No Definite Risk - Focused Exam Vital Signs: Vital Signs Temp Pulse Resp BP Pulse Ox 11/13/19 08:12 36.5 C 78 18 156/59 H 98 Date Exam was Performed: 11/13/19 Time Exam was Performed: 08:51 - My Orders Last 24 Hours: My Active Orders 11/13/19 08:18 CULTURE URINE [RM] Urgent - Assessment/Plan Last 24 Hours: My Active Orders 11/13/19 08:18 CULTURE URINE [RM] Urgent
[2019-11-13] MEDS ORDERED: Nitrofurantoin Monohydrate/Macrocrystalline 100 MG Cap PO ONE (08:48)
== END 2019-11-13 09:00 | disposition home or self-care (01) ==
LOC: DL.ED 08:09
DX: N39.0 Urinary tract infection, site not specified (principal); K21.9 Gastro-esophageal reflux disease without esophagitis; F32.9 Major depressive disorder, single episode, unspecified; F41.9 Anxiety disorder, unspecified; M19.90 Unspecified osteoarthritis, unspecified site; Z88.2 Allergy status to sulfonamides; Z79.899 Other long term (current) drug therapy
CPT/HCPCS: 81001; 87086; 87088; 87186; 99283; A9270

== ENCOUNTER 2020-11-19 15:19 | Emergency (ER) | payer OTHER, MEDICARE ==
--- NOTE | 2020-11-19 16:02 | EDM.PDOC ---
ED HPI GENERAL MEDICAL PROBLEM - General Stated Complaint: POSSIBLE COVID Time Seen by Provider: 11/19/20 16:02 Source of Information: Reports: Patient, RN, RN Notes Reviewed History Limitations: Reports: No Limitations - History of Present Illness INITIAL COMMENTS - FREE TEXT/NARRATIVE: Jayla is a 70 y/o female who presents to the ED via personal vehicle with complaints of fever, chest tightness, and shortness of breath. The patient reports her symptoms began about 13 days ago, on November 06 following a visit with her mother on Mother's Day who later tested positive for COVID. She was subsequently seen in the [place] [facility] two days after symptoms onset and was counseled on supportive cares for a COVID infection, which included Tylenol and Mucinex. In addition to the aforementioned symptoms she has experienced, general malaise, muscle aches, headache, nausea, vomiting, and diarrhea; she states her last emesis was two days ago. She reports she presents today as she is concerned her symptoms have persisted this long and she developed significant shortness of breath while walking up 12 stairs in her home this morning. She denies tobacco, alcohol, or recreational drug use. - Related Data Allergies Allergy/AdvReac Type Severity Reaction Status Date / Time Sulfa (Sulfonamide Allergy Rash Verified 11/13/19 08:14 Antibiotics) Home Meds: Home Meds Citalopram Hydrobromide [Celexa] 20 mg PO DAILY 04/03/17 [History] Omeprazole 20 mg PO DAILY 04/03/17 [History] traMADol [Ultram] 50 mg PO Q6H PRN 04/03/17 [History] cycloSPORINE [Restasis] 1 drop EYEBOTH DAILY 08/14/17 [History] Calcium Carbonate/Vitamin D3 [Calcium 1,000 + D3 Caplet] 1 tab PO DAILY 08/25/17 [History] prednisoLONE acetate [Pred Forte 1% Ophth Susp] 1 drop EYEBOTH ASDIRECTED 08/25/17 [History] Past Medical History HEENT History: Reports: Cataract, Impaired Vision Cardiovascular History: Reports: None Respiratory History: Reports: Asthma Gastrointestinal History: Reports: GERD Genitourinary History: Reports: UTI, Recurrent 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 Musculoskeletal History: Reports: Arthritis, Fracture, Fibromyalgia, Other (See Below) Other Musculoskeletal History: spondylolisthesis, TMJ Neurological History: Reports: Headaches, Chronic Psychiatric History: Reports: Anxiety, Depression Endocrine/Metabolic History: Reports: Other (See Below) Other Endocrine/Metabolic History: lemon sized thyroid growth (1963) Hematologic History: Reports: Blood Transfusion(s) Immunologic History: Reports: None Oncologic (Cancer) History: Reports: Malignant Melanoma Dermatologic History: Reports: Eczema, Psoriasis - Infectious Disease History Infectious Disease History: Reports: Chicken Pox, Measles - Past Surgical History HEENT Surgical History: Reports: Adenoidectomy, Cataract Surgery, Naso-Sinus Surgery, Tonsillectomy, Other (See Below) Other HEENT Surgeries/Procedures: probing of tear ducts. S/P CATARACT EXTRACTION LENS PLACEMENT IN RIGHT EYE Cardiovascular Surgical History: Reports: None Respiratory Surgical History: Reports: None GI Surgical History: Reports: Appendectomy Female Surgical History: Reports: Breast Biopsy, Hysterectomy, Oophorectomy Endocrine Surgical History: Reports: Other (See Below) Other Endocrine Surgeries/Procedures: goiter removed Neurological Surgical History: Reports: None Musculoskeletal Surgical History: Reports: None Oncologic Surgical History: Reports: None Dermatological Surgical History: Reports: None Social & Family History - Family History Family Medical History: No Pertinent Family History HEENT: Reports: Cataract - Caffeine Use Caffeine Use: Reports: Coffee ED ROS GENERAL - Review of Systems Review Of Systems: Comprehensive ROS is negative, except as noted in HPI. ED EXAM, GENERAL - Physical Exam Exam: See Below Exam Limited By: No Limitations General Appearance: Alert, No Apparent Distress Eye Exam: Bilateral Eye: EOMI, Normal Inspection, PERRL (3mm) Ears: Normal External Exam, Normal Canal, Hearing Grossly Normal. No: Normal TMs (ANTONI d/t cerumen impaction) Ear Exam: Bilateral Ear: Auricle Normal, Canal Normal, Other (Cerumen impaction) Nose: Normal Inspection, Normal Mucosa, No Blood Throat/Mouth: Normal Inspection, Normal Lips, Normal Teeth, Normal Gums, Normal Oropharynx, Normal Voice, No Airway Compromise Head: Atraumatic, Normocephalic Neck: Normal Inspection, Supple, Full Range of Motion, Lymphadenopathy (R) (Anterior cervical chain). No: Lymphadenopathy (L) Respiratory/Chest: No Respiratory Distress, Lungs Clear, Normal Breath Sounds, No Accessory Muscle Use, Chest Non-Tender. No: Crackles, Rales, Rhonchi, Wheezing, Stridor Cardiovascular: Normal Peripheral Pulses, Regular Rate, Rhythm, No Edema, No Gallop, No JVD, No Murmur, No Rub Peripheral Pulses: 2+: Radial (L), Radial (R) GI/Abdominal: Normal Bowel Sounds, Soft, Non-Tender, No Distention, No Mass, Pelvis Stable. No: Guarding, Rigid, Rebound (Female) Exam: Cervical Discharge Rectal (Female) Exam: Deferred Back Exam: Normal Inspection, Full Range of Motion. No: CVA Tenderness (L), CVA Tenderness (R) Extremities: Normal Inspection, Normal Range of Motion, No Pedal Edema, Normal Capillary Refill Neurological: Alert, Oriented, CN II-XII Intact, Normal Cognition, Normal Gait, No Motor/Sensory Deficits Psychiatric: Normal Affect, Normal Mood Skin Exam: Warm, Dry, Intact, Normal Color, No Rash. No: Ecchymosis, Erythema, Jaundice, Mottled, Pallor, Petechiae #1 Interpretation EKG Date: 11/19/20 Time: 16:06 Rhythm: NSR Rate (Beats/Min): 65 [place]: Normal P-Wave: Present QRS: Normal ST-T: Normal QT: Normal NV/PQ Interval: 0.146 Comparison: No Change EKG Interpretation Comments: NSR; No evidence of acute myocardial ischemia Course - Vital Signs Last Recorded V/S: Last Vital Signs Temp 98.2 F 11/19/20 15:24 Pulse 78 11/19/20 15:24 Resp 18 11/19/20 15:24 BP 142/68 H 11/19/20 15:24 Pulse Ox 99 11/19/20 15:24 - Orders/Labs/Meds Labs: Laboratory Tests 11/19/20 11/19/20 11/19/20 Range/Units 15:24 15:57 15:57 WBC 6.8 (5.0-10.0) 10^3/uL RBC 4.84 (4.2-5.4) 10^6/uL Hgb 14.6 (12.0-16.0) g/dL Hct 43.4 (37.0-47.0) % MCV 89.7 (80-100) fL MCH 30.2 (27.0-34.0) pg MCHC 33.6 (33.0-35.0) g/dL Plt Count 263 (150-450) 10^3/uL Neut % (Auto) 42.0 L (42.2-75.2) % Lymph % (Auto) 43.8 (20.5-50.1) % [place] % (Auto) 13.1 H (2-8) % Eos % (Auto) 1.0 (1.0-3.0) % Baso % (Auto) 0.1 (0.0-1.0) % D-Dimer, Quantitative (0-400) ng/mL Sodium 140 (136-145) mmol/L Potassium 4.3 (3.5-5.1) mmol/L Chloride 105 (98-107) mmol/L Carbon Dioxide 28 (21-32) mmol/L Anion Gap 11.3 (7-13) mEq/L BUN 25 H (7-18) mg/dL Creatinine 1.12 H (0.55-1.02) mg/dL Est Cr Clr Drug Dosing 38.02 mL/min Estimated GFR (MDRD) 48 BUN/Creatinine Ratio 22.3 (No establ ref range) Glucose 103 H (70-99) mg/dL Calcium 8.9 (8.5-10.1) mg/dL Total Bilirubin 0.8 (0.2-1.0) mg/dL AST 17 (15-37) U/L ALT 23 (14-59) U/L Alkaline Phosphatase 76 (46-116) U/L Troponin I < 0.017 (0.000-0.056) ng/mL C-Reactive Protein < 0.2 (0.0-0.9) mg/dL Total Protein 6.8 (6.4-8.2) g/dL Albumin 3.7 (3.4-5.0) g/dL Globulin 3.1 Albumin/Globulin Ratio 1.2 Urine Color (YELLOW) Urine Appearance (CLEAR) Urine pH (5.0-9.0) Ur Specific Duff (1.005-1.030) Urine Protein (NEGATIVE) Urine Glucose (UA) (NEGATIVE) Urine Ketones (NEGATIVE) Urine Occult Blood (NEGATIVE) Urine Nitrite (NEGATIVE) Urine Bilirubin (NEGATIVE) Urine Urobilinogen (0.2-1.0) mg/dL Ur Leukocyte Esterase (NEGATIVE) U Hyaline Cast (Auto) Urine RBC /HPF Urine WBC (0-5/HPF) /HPF Ur Epithelial Cells (NOT SEEN) /HPF Urine Bacteria (0-FEW/HPF) /HPF Urine Mucus (NOT SEEN) /LPF Influenza Type A RNA Negative (NEGATIVE) Influenza Type B RNA Negative (NEGATIVE) SARS-CoV-2 RNA ([place]) Positive H (NEGATIVE) 11/19/20 11/19/20 Range/Units 15:57 16:25 WBC (5.0-10.0) 10^3/uL RBC (4.2-5.4) 10^6/uL Hgb (12.0-16.0) g/dL Hct (37.0-47.0) % MCV (80-100) fL MCH (27.0-34.0) pg MCHC (33.0-35.0) g/dL Plt Count (150-450) 10^3/uL Neut % (Auto) (42.2-75.2) % Lymph % (Auto) (20.5-50.1) % [place] % (Auto) (2-8) % Eos % (Auto) (1.0-3.0) % Baso % (Auto) (0.0-1.0) % D-Dimer, Quantitative < 100 (0-400) ng/mL Sodium (136-145) mmol/L Potassium (3.5-5.1) mmol/L Chloride (98-107) mmol/L Carbon Dioxide (21-32) mmol/L Anion Gap (7-13) mEq/L BUN (7-18) mg/dL Creatinine (0.55-1.02) mg/dL Est Cr Clr Drug Dosing mL/min Estimated GFR (MDRD) BUN/Creatinine Ratio (No establ ref range) Glucose (70-99) mg/dL Calcium (8.5-10.1) mg/dL Total Bilirubin (0.2-1.0) mg/dL AST (15-37) U/L ALT (14-59) U/L Alkaline Phosphatase (46-116) U/L Troponin I (0.000-0.056) ng/mL C-Reactive Protein (0.0-0.9) mg/dL Total Protein (6.4-8.2) g/dL Albumin (3.4-5.0) g/dL Globulin Albumin/Globulin Ratio Urine Color Yellow (YELLOW) Urine Appearance Clear (CLEAR) Urine pH 5.5 (5.0-9.0) Ur Specific Duff >= 1.030 (1.005-1.030) Urine Protein Trace H (NEGATIVE) Urine Glucose (UA) Negative (NEGATIVE) Urine Ketones Negative (NEGATIVE) Urine Occult Blood Moderate H (NEGATIVE) Urine Nitrite Negative (NEGATIVE) Urine Bilirubin Negative (NEGATIVE) Urine Urobilinogen 0.2 (0.2-1.0) mg/dL Ur Leukocyte Esterase Negative (NEGATIVE) U Hyaline Cast (Auto) Rare Urine RBC 5-10 H /HPF Urine WBC 0-5 (0-5/HPF) /HPF Ur Epithelial Cells Moderate H (NOT SEEN) /HPF Urine Bacteria Rare (0-FEW/HPF) /HPF Urine Mucus Moderate H (NOT SEEN) /LPF Influenza Type A RNA (NEGATIVE) Influenza Type B RNA (NEGATIVE) SARS-CoV-2 RNA ([place]) (NEGATIVE) - Re-Assessments/Exams Free Text/Narrative Re-Assessment/Exam: 11/19/20 COVID +; Influenza negative CBC unremarkable for acute processes; no evidence of infection or anemia. D-Dimer WNL. Troponin WNL. CRP negative. EKG revealed NSR with no evidence of acute myocardial ischemia Electrolytes and liver function appropriate via CMP. Kidney function slightly reduced with Creatinine 1.12, BUN 25, and GFR 48. Patient encouraged to increase fluid intake; will refrain from fluid bolus given COVID status. UA revealed occult blood and 5-10 RBCs; patient reports this is a normal findings for her. Findings of examination, lab work, and imaging reviewed with patient. Discussed need for follow up regarding ill-defined RUL nodule. Discussed ongoing supportive cares, as well as red flag signs and symptoms which would warrant reevaluation. Patient verbalized understanding and agreement with the plan of care. Departure - Departure Time of Disposition: 18:45 Disposition: Home, Self-Care 01 Condition: Good Clinical Impression: COVID-19, Right upper lobe pulmonary nodule Hematuria Qualifiers: Hematuria type: unspecified type Qualified Code(s): R31.9 - Hematuria, unspecified - Discharge Information *PRESCRIPTION DRUG MONITORING PROGRAM REVIEWED*: Not Applicable *COPY OF PRESCRIPTION DRUG MONITORING REPORT IN PATIENT ALLY: Not Applicable Instructions: COVID-19 Frequently Asked Questions, What You Should Know About COVID-19 to Protect Yourself and Others - CDC, Prevent the Spread of COVID-19 if You Are Sick - [facility] Referrals: PCP,None [Primary Care Provider] - Forms: ED Department Discharge Additional Instructions: 1.) Follow up with your primary care provider regarding findings on Xray today; you will require an outpatient CT Scan 2.) You may use your albuterol inhaler, as needed, for shortness of breath 3.) You may also take acetaminophen (Tylenol) 650mg every six hours, as malaise, fever, and muscle aches persist. 4.) Drink plenty of water to stay hydrated. 5.) Eat a bland diet while you continue to experience gastrointestinal events. Avoid spicy, high-fat, greasy foods. 6.) Drink plenty of water to stay hydrated.
[2020-11-19 16:12] LABS: CORONAVIRUS COVID-19 NAA POSITIVE (NEGATIVE)
[2020-11-19 16:24] VITALS: BP 142/68; PULSE 78
[2020-11-19 16:25] LABS: ANION GAP 11.3 mEq/L (7-13); CHLORIDE,CL 105 mmol/L (98-107); SODIUM,NA 140 mmol/L (136-145)
--- NOTE | 2020-11-19 16:46 | CR ---
EXAMINATION: Chest 1V Frontal SEX: Female AGE: 70 years CLINICAL HISTORY: 70-year-old female with fever and dyspnea on exertion (SOB). No comparison films (CXR) immediately available. Interpretation: 1. *Subtle ill-defined right suprahilar nodular density. Smoker? 2. No alveolar infiltrates or peripheral "groundglass" lung densities. 3. No hilar or mediastinal lymphadenopathy. Normal midline tracheal bronchial airway. 4. Normal cardiac silhouette. No pulmonary vascular congestion, cephalization of flow, alveolar edema or dependent pleural fluid accumulation (no effusions). 5. Bony thorax unremarkable. Left-sided aortic arch. Lung apices clear. CONCLUSION: No lobar pneumonia. Ill-defined nodule RUL. Discussion: Suggest follow-up PA/lateral CXR or unenhanced CT chest.
== END 2020-11-19 20:06 | disposition home or self-care (01) ==
LOC: DL.ED 15:19
DX: U07.1 COVID-19 (principal); R31.9 Hematuria, unspecified; K21.9 Gastro-esophageal reflux disease without esophagitis; R91.1 Solitary pulmonary nodule; Z79.899 Other long term (current) drug therapy; Z88.2 Allergy status to sulfonamides
CPT/HCPCS: 0240U; 36415; 71045; 80053; 81001; 84484; 85025; 85379; 86140; 93005; 93010; 99284; 99285

== ENCOUNTER 2021-03-07 21:07 | Emergency (ER) | payer OTHER ==
[2021-03-07 22:19] VITALS: BP 104/86; PULSE 89
[2021-03-07] MEDS ORDERED: Dexamethasone 4 MG/ML SDV IVPUSH ONE (23:09)
[2021-03-07 23:10] LABS: ANION GAP 14.4 mEq/L (7-13)
[2021-03-07] MEDS ORDERED: HYDROmorphone 1 MG/ML Syringe IVPUSH ONE (23:19)
--- NOTE | 2021-03-08 01:29 | EDM.PDOC ---
ED HPI GENERAL MEDICAL PROBLEM - General Chief Complaint: Genitourinary Problem Stated Complaint: SI PAIN Time Seen by Provider: 03/07/21 22:30 Source of Information: Reports: Patient, Family (), RN, RN Notes Reviewed History Limitations: Reports: No Limitations - History of Present Illness INITIAL COMMENTS - FREE TEXT/NARRATIVE: Patient is a 70-year-old female who presents to ER with complaint of loss of bladder control/bladder incontinence x2 today. Patient states she does have a significant history of lumbar/sacral/SI joint issues. Patient states she has had a microdiscectomy in 2009. States she has quite a bit of pain in the mornings, progresses throughout the day, and is worst at night. Patient uses Tylenol and tramadol for pain. States the pain was worse today than usual. She was going out for supper with her , took 2 tramadol prior to supper and had 1 glass of wine with supper. When she returned home she had complete incontinence of bladder, went to the bathroom to take a shower and clean up when she had a second episode. No loss of bowel control. No saddle anesthesia. Patient states that she has pain outside the left leg, some down the right. She states she has been seeing an orthopedic doctor at [facility] in [place], as well as doing physical therapy. Patient states she did have Covid in October, and has chronic blood in the urine. Patient is having increased pain this evening. When patient arrived at the ER she did use the restroom as she did feel the urge but states she had no control of starting or stopping urine stream. Onset: Today, Sudden Treatments FILM PROCESSOR: Reports: Other (see below) Other Treatments FILM PROCESSOR: tramadol; Left Buttock Pain Score (Numeric/FACES): 5 - Related Data Allergies Allergy/AdvReac Type Severity Reaction Status Date / Time Sulfa (Sulfonamide Allergy Rash Verified 11/13/19 08:14 Antibiotics) Home Meds: Home Meds Citalopram Hydrobromide [Celexa] 20 mg PO DAILY 04/03/17 [History] traMADol [Ultram] 50 mg PO Q6H PRN 04/03/17 [History] cycloSPORINE [Restasis] 1 drop EYEBOTH DAILY PRN 08/14/17 [History] Calcium Carbonate/Vitamin D3 [Calcium 1,000 + D3 Caplet] 1 tab PO DAILY 08/25/17 [History] Acetaminophen [Tylenol] 500 mg PO ASDIRECTED PRN 03/07/21 [History] Famotidine 10 mg PO BID 03/07/21 [History] Past Medical History HEENT History: Reports: Cataract, Impaired Vision Cardiovascular History: Reports: None Respiratory History: Reports: Asthma Gastrointestinal History: Reports: GERD Genitourinary History: Reports: UTI, Recurrent 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 Neurological History: Reports: Headaches, Chronic Psychiatric History: Reports: Anxiety, Depression Endocrine/Metabolic History: Reports: Other (See Below) Other Endocrine/Metabolic History: lemon sized thyroid growth (1962) Hematologic History: Reports: Blood Transfusion(s) Immunologic History: Reports: None Oncologic (Cancer) History: Reports: Malignant Melanoma Dermatologic History: Reports: Eczema, Psoriasis - Infectious Disease History Infectious Disease History: Reports: Chicken Pox, Measles, Other (See Below) Other Infectious Disease History: Covid - Past Surgical History HEENT Surgical History: Reports: Adenoidectomy, Cataract Surgery, Naso-Sinus Surgery, Tonsillectomy, Other (See Below) Other HEENT Surgeries/Procedures: probing of tear ducts. S/P CATARACT EXTRACTION LENS PLACEMENT IN RIGHT EYE Cardiovascular Surgical History: Reports: None Respiratory Surgical History: Reports: None GI Surgical History: Reports: Appendectomy Female Surgical History: Reports: Breast Biopsy, Hysterectomy, Oophorectomy Endocrine Surgical History: Reports: Other (See Below) Other Endocrine Surgeries/Procedures: goiter removed Neurological Surgical History: Reports: None Musculoskeletal Surgical History: Reports: None Oncologic Surgical History: Reports: None Dermatological Surgical History: Reports: None Social & Family History - Family History Family Medical History: No Pertinent Family History HEENT: Reports: Cataract - Tobacco Use Tobacco Use Status *Q: Never Tobacco User Second Hand Smoke Exposure: No - Caffeine Use Caffeine Use: Reports: None - Recreational Drug Use Recreational Drug Use: No ED ROS GENERAL - Review of Systems Review Of Systems: Comprehensive ROS is negative, except as noted in HPI. ED EXAM, NEURO - Physical Exam Exam: See Below Exam Limited By: No Limitations General Appearance: Alert, WD/WN, Mild Distress Eye Exam: Bilateral Eye: EOMI, Normal Inspection Ears: Normal External Exam, Hearing Grossly Normal Nose: Normal Inspection Throat/Mouth: Normal Inspection, Normal Voice, No Airway Compromise Head Exam: Atraumatic, Normocephalic Neck: Normal Inspection, Supple, Non-Tender, Full Range of Motion Respiratory/Chest: No Respiratory Distress, Lungs Clear, Normal Breath Sounds, No Accessory Muscle Use, Chest Non-Tender Cardiovascular: Normal Peripheral Pulses, Regular Rate, Rhythm, No Edema, No Gallop, No JVD, No Murmur GI/Abdominal: Normal Bowel Sounds, Soft, Non-Tender, No Organomegaly, No Distention, No Abnormal Bruit, No Mass (Female) Exam: Deferred Rectal (Female) Exam: Deferred Neurological: Alert, Normal Mood/Affect, Normal Dorsiflexion, CN II-XII Intact, Normal Plantar Flexion, Normal Gait (With cane), No Motor/Sensory Deficits, Oriented x 3 Back Exam: Normal Inspection, Decreased Range of Motion Extremities: Normal Inspection, Normal Capillary Refill, Limited Range of Motion Psychiatric: Normal Affect, Normal Mood Skin Exam: Warm, Dry, Intact, Normal Color, No Rash Course - Vital Signs Last Recorded V/S: Last Vital Signs Temp 96.1 F L 03/07/21 21:55 Pulse 89 03/07/21 21:55 Resp 16 03/07/21 21:55 BP 104/86 03/07/21 21:55 Pulse Ox 95 03/07/21 21:55 - Orders/Labs/Meds Labs: Laboratory Tests 03/07/21 03/07/21 03/07/21 Range/Units 22:29 22:32 22:32 WBC 11.7 H (5.0-10.0) 10^3/uL RBC 4.59 (4.2-5.4) 10^6/uL Hgb 14.4 (12.0-16.0) g/dL Hct 43.0 (37.0-47.0) % MCV 93.7 D (80-100) fL MCH 31.4 (27.0-34.0) pg MCHC 33.5 (33.0-35.0) g/dL Plt Count 312 (150-450) 10^3/uL Neut % (Auto) 42.9 (42.2-75.2) % Lymph % (Auto) 42.4 (20.5-50.1) % [place] % (Auto) 12.1 H (2-8) % Eos % (Auto) 2.3 (1.0-3.0) % Baso % (Auto) 0.3 (0.0-1.0) % Sodium 143 (136-145) mmol/L Potassium 4.4 (3.5-5.1) mmol/L Chloride 104 (98-107) mmol/L Carbon Dioxide 29 (21-32) mmol/L Anion Gap 14.4 H (7-13) mEq/L BUN 13 (7-18) mg/dL Creatinine 1.14 H (0.55-1.02) mg/dL Est Cr Clr Drug Dosing 42.50 mL/min Estimated GFR (MDRD) 47 BUN/Creatinine Ratio 11.4 (No establ ref range) Glucose 106 H (70-99) mg/dL Calcium 9.7 (8.5-10.1) mg/dL Total Bilirubin 0.3 (0.2-1.0) mg/dL AST 19 (15-37) U/L ALT 24 (14-59) U/L Alkaline Phosphatase 80 (46-116) U/L Total Protein 7.5 (6.4-8.2) g/dL Albumin 2.8 L (3.4-5.0) g/dL Globulin 4.7 Albumin/Globulin Ratio 0.60 Urine Color Yellow (YELLOW) Urine Appearance Clear (CLEAR) Urine pH 5.5 (5.0-9.0) Ur Specific [place] 1.025 (1.005-1.030) Urine Protein Negative (NEGATIVE) Urine Glucose (UA) Negative (NEGATIVE) Urine Ketones Negative (NEGATIVE) Urine Occult Blood Moderate H (NEGATIVE) Urine Nitrite Negative (NEGATIVE) Urine Bilirubin Negative (NEGATIVE) Urine Urobilinogen 0.2 (0.2-1.0) mg/dL Ur Leukocyte Esterase Negative (NEGATIVE) Urine RBC 5-10 H (0-5) /HPF Urine WBC 0-5 (0-5/HPF) /HPF Ur Epithelial Cells Rare (NOT SEEN) /HPF Urine Bacteria Rare (0-FEW/HPF) /HPF Urine Mucus Rare (NOT SEEN) /LPF Urine Yeast Rare H (NOT SEEN) /HPF Meds: Medications Discontinued Medications Generic Name Dose Route Start Last Admin Trade Name Freq PRN Reason Stop Dose Admin Dexamethasone 10 mg 03/07/21 23:09 03/07/21 23:21 Dexamethasone 4 Mg/Ml Sdv IVPUSH 03/07/21 23:10 10 mg ONETIME ONE Administration Hydromorphone HCl 1 mg 03/07/21 23:19 03/07/21 23:24 Hydromorphone 1 Mg/Ml Syringe IVPUSH 03/07/21 23:20 1 mg ONETIME ONE Administration - Re-Assessments/Exams Free Text/Narrative Re-Assessment/Exam: 03/08/21 01:27 Discussed patient case with Dr. Ellsworth at [facility] in [place] who agreed to accept the patient for transfer. Departure - Departure Time of Disposition: 23:48 Disposition: DC/Tfer to Acute Hospital 02 Condition: Fair Clinical Impression: Cauda equina injury without bone injury Qualifiers: Encounter type: initial encounter Qualified Code(s): S34.3XXA - Injury of cauda equina, initial encounter - Discharge Information *PRESCRIPTION DRUG MONITORING PROGRAM REVIEWED*: No *COPY OF PRESCRIPTION DRUG MONITORING REPORT IN PATIENT ALLY: No Referrals: PCP,None [Primary Care Provider] - Forms: ED Department Discharge, Interfacility Transfer [facility] Sepsis Event Note (ED) - Evaluation Sepsis Screening Result: No Definite Risk - Focused Exam Vital Signs: Vital Signs Temp Pulse Resp BP Pulse Ox 03/07/21 21:55 96.1 F L 89 16 104/86 95
== END 2021-03-07 23:48 ==
LOC: DL.ED 21:07
DX: S34.3XXA Injury of cauda equina, initial encounter (principal); J45.909 Unspecified asthma, uncomplicated; K21.9 Gastro-esophageal reflux disease without esophagitis; Z88.2 Allergy status to sulfonamides; Z79.899 Other long term (current) drug therapy; Z98.890 Other specified postprocedural states; X58.XXXA Exposure to other specified factors, initial encounter
CPT/HCPCS: 36415; 80053; 81001; 85025; 96374; 96375; 99284; J1100; J1170

== ENCOUNTER 2021-03-20 13:49 | Emergency (ER) | payer SELFPAY ==
[2021-03-20 15:10] VITALS: BP 145/65; PULSE 79
[2021-03-20] MEDS ORDERED: methylPREDNISolone Sodium Succinate 125 MG/2 ML SDV IM ONE (16:14)
[2021-03-20] MEDS ORDERED: Orphenadrine 60 MG/2 ML Inj IM ONE (16:14)
--- NOTE | 2021-03-20 16:16 | EDM.PDOC ---
ED HPI GENERAL MEDICAL PROBLEM - General Chief Complaint: Lower Extremity Injury/Pain Stated Complaint: HIP LOCKED UP Time Seen by Provider: 03/20/21 15:50 Source of Information: Reports: Patient, RN, RN Notes Reviewed History Limitations: Reports: No Limitations - History of Present Illness INITIAL COMMENTS - FREE TEXT/NARRATIVE: Jayla is a 70 y/o female who presents to the ED via personal vehicle with complaints of left lower back pain that radiates into the left lateral hip and anterior thigh. Three days ago the patient received an emergent MRI to r/o caudal equina syndrome and was found to have L4-L5 stenosis. She states today she was in [employer] reaching up to a shelf and experienced and immediate spasm in her left lower back that continues to cause her pain; she states the spasm started approximately 20 minutes prior to her arrival to this facility. She denies falls. She denies saddle paraesthesia or incontinence since the event, but does attest to transient incontinence for which she has appointment arranged with neurosurgery and urology in the upcoming week. She has taken no medications or performed any supportive cares for her current symptoms. Left Hip Pain Score (Numeric/FACES): 8 - Related Data Allergies Allergy/AdvReac Type Severity Reaction Status Date / Time Sulfa (Sulfonamide Allergy Rash Verified 03/20/21 15:11 Antibiotics) Home Meds: Home Meds Citalopram Hydrobromide [Celexa] 20 mg PO DAILY 04/03/17 [History] traMADol [Ultram] 50 mg PO Q6H PRN 04/03/17 [History] cycloSPORINE [Restasis] 1 drop EYEBOTH DAILY PRN 08/14/17 [History] Calcium Carbonate/Vitamin D3 [Calcium 1,000 + D3 Caplet] 1 tab PO DAILY 08/25/17 [History] Acetaminophen [Tylenol] 500 mg PO ASDIRECTED PRN 03/07/21 [History] Famotidine 10 mg PO BID 03/07/21 [History] atorvaSTATin [Lipitor] 20 mg PO BEDTIME 03/20/21 [History] Past Medical History HEENT History: Reports: Cataract, Impaired Vision Cardiovascular History: Reports: High Cholesterol Respiratory History: Reports: Asthma Gastrointestinal History: Reports: GERD Genitourinary History: Reports: UTI, Recurrent [employer] History: Reports: None Musculoskeletal History: Reports: Arthritis, Fracture, Fibromyalgia, Other (See Below) Other Musculoskeletal History: spondylolisthesis, TMJ, Micro discectopy L4-L5 sacral joint problems. Neurological History: Reports: Headaches, Chronic Psychiatric History: Reports: Anxiety, Depression Endocrine/Metabolic History: Reports: Other (See Below) Other Endocrine/Metabolic History: lemon sized thyroid growth (1963) Hematologic History: Reports: Blood Transfusion(s) Immunologic History: Reports: None Oncologic (Cancer) History: Reports: Malignant Melanoma Dermatologic History: Reports: Eczema, Psoriasis - Infectious Disease History Infectious Disease History: Reports: Chicken Pox, Measles, Other (See Below) Other Infectious Disease History: Covid - Past Surgical History HEENT Surgical History: Reports: Adenoidectomy, Cataract Surgery, Naso-Sinus Surgery, Tonsillectomy, Other (See Below) Other HEENT Surgeries/Procedures: probing of tear ducts. S/P CATARACT EXTRACTION LENS PLACEMENT IN RIGHT EYE Cardiovascular Surgical History: Reports: None Respiratory Surgical History: Reports: None GI Surgical History: Reports: Appendectomy Female Surgical History: Reports: Breast Biopsy, Hysterectomy, Oophorectomy Endocrine Surgical History: Reports: Other (See Below) Other Endocrine Surgeries/Procedures: goiter removed Neurological Surgical History: Reports: None Musculoskeletal Surgical History: Reports: None Oncologic Surgical History: Reports: None Dermatological Surgical History: Reports: None Social & Family History - Family History Family Medical History: No Pertinent Family History HEENT: Reports: Cataract - Tobacco Use Tobacco Use Status *Q: Never Tobacco User - Caffeine Use Caffeine Use: Reports: Coffee - Recreational Drug Use Recreational Drug Use: No Review of Systems - Review of Systems Review Of Systems: Comprehensive ROS is negative, except as noted in HPI. ED EXAM, GENERAL - Physical Exam Exam: See Below Exam Limited By: No Limitations General Appearance: Alert, Mild Distress (Pain to left lower back) Eye Exam: Bilateral Eye: EOMI, Normal Inspection Ears: Normal External Exam, Hearing Grossly Normal Nose: Normal Inspection, Normal Mucosa, No Blood Throat/Mouth: Normal Inspection, Normal Oropharynx, Normal Voice, No Airway Comp romise Head: Atraumatic, Normocephalic Neck: Normal Inspection, Full Range of Motion Respiratory/Chest: No Respiratory Distress, Lungs Clear, Normal Breath Sounds, No Accessory Muscle Use, Chest Non-Tender Cardiovascular: Normal Peripheral Pulses, Regular Rate, Rhythm, No Gallop, No Murmur, No Rub Peripheral Pulses: 1+: Posterior Tibial (L), Posterior Tibial (R), 2+: Radial (L), Radial (R), Dorsalis Pedis (L), Dorsalis Pedis (R) GI/Abdominal: Normal Bowel Sounds, Soft, Non-Tender, No Distention, No Abnormal Bruit, No Mass, Pelvis Stable (Female) Exam: Deferred Rectal (Female) Exam: Deferred Back Exam: Decreased Range of Motion, Muscle Spasm (To left lower back). No: CVA Tenderness (L), CVA Tenderness (R), Paraspinal Tenderness, Vertebral Tenderness Extremities: Normal Inspection, Normal Range of Motion, Non-Tender, No Pedal Edema, Normal Capillary Refill. No: Joint Swelling, Leg Pain Neurological: Alert, Oriented, CN II-XII Intact, Normal Cognition, Normal Reflexes, No Motor/Sensory Deficits, Abnormal Gait (Shuffling gait from pain to back) Psychiatric: Normal Affect, Normal Mood Skin Exam: Warm, Dry, Intact, Normal Color, No Rash. No: Cyanosis, Jaundice, Mottled, Pallor Course - Vital Signs Last Recorded V/S: Last Vital Signs Temp 98.3 F 03/20/21 15:06 Pulse 79 03/20/21 15:06 Resp 18 03/20/21 15:06 BP 145/65 H 03/20/21 15:06 Pulse Ox 96 03/20/21 15:06 - Orders/Labs/Meds Meds: Medications Discontinued Medications Generic Name Dose Route Start Last Admin Trade Name Jaydenq PRN Reason Stop Dose Admin Methylprednisolone Sodium Succinate 125 mg 03/20/21 16:14 03/20/21 16:34 Methylprednisolone Sodium Succinate 125 Mg/2 Ml Sdv IM 03/20/21 16:15 125 mg ONETIME ONE Administration Orphenadrine Citrate 60 mg 03/20/21 16:14 03/20/21 16:34 Orphenadrine 60 Mg/2 Ml Inj IM 03/20/21 16:15 60 mg ONETIME ONE Administration - Re-Assessments/Exams Free Text/Narrative Re-Assessment/Exam: 03/20/21 Orphenadrine 60mg IM and Solu-Medrol 125mg IM administered. Patient verbalized improvement in pain following medication administration. Findings of examination reviewed with patient. Will treat muscle spasm and low back pain with Medrol Dose Pack and Norflex. Patient instructed to continue with previously scheduled appointment as well as follow up with her PCP. Red flag signs and symptoms which would warrant immediate reevaluation reviewed. Patient verbalized understanding and agreement with the plan of care. Departure - Departure Time of Disposition: 17:09 Disposition: Home, Self-Care 01 Condition: Good Clinical Impression: Muscle spasm Low back pain Qualifiers: Chronicity: acute Back pain laterality: left Sciatica presence: with sciatica Sciatica laterality: sciatica of left side Qualified Code(s): M54.42 - Lumbago with sciatica, left side - Discharge Information *PRESCRIPTION DRUG MONITORING PROGRAM REVIEWED*: Not Applicable *COPY OF PRESCRIPTION DRUG MONITORING REPORT IN PATIENT ALLY: Not Applicable Instructions: Muscle Cramps and Spasms, Sciatica Referrals: Di Dsouza PA [Primary Care Provider] - Forms: ED Department Discharge Additional Instructions: Rx: Norflex Rx: Medrol Dose Pack 1.) Start your steroid and muscle relaxer tomorrow. 2.) Do not drive while you are taking a muscle relaxer. 3.) You may alternate cold and warm compresses to the lower back as pain persists. 4.) You may apply BioFreeze, Bengay, or a similar cream/ointment to the lower back as pain persists. 5.) You may take ibuprofen (Motrin/Advil) 400-800mg every six hours, as pain persists. You may also take acetaminophen (Tylenol) 650-1000mg every six hours, as pain persists. You may stagger these medications so you are taking a dose every three hours. 6.) Follow up with your primary care provider in 3-5 days regarding today's visit. Continue with neurosurgery and urology appointments. Sepsis Event Note (ED) - Evaluation Sepsis Screening Result: No Definite Risk
== END 2021-03-20 17:18 | disposition home or self-care (01) ==
LOC: DL.ED 13:49
DX: M54.42 Lumbago with sciatica, left side (principal); M62.830 Muscle spasm of back; E78.00 Pure hypercholesterolemia, unspecified; Z79.899 Other long term (current) drug therapy; Z88.2 Allergy status to sulfonamides
CPT/HCPCS: 96372; 99283; J2360; J2930

== ENCOUNTER 2023-02-19 17:48 | Emergency (ER) | payer OTHER ==
[2023-02-19] MEDS ORDERED: Sodium Chloride 0.9% 10 ML Syringe FLUSH PRN (18:17)
[2023-02-19 18:28] LABS: BASOPHILS PERCENT AUTO 0.5 % (0.0-1.0); EOSINOPHILS PERCENT AUTO 3.3 % (1.0-3.0); HEMATOCRIT 45.2 % (37.0-47.0); HEMOGLOBIN 15.1 g/dL (12.0-16.0); LYMPHOCYTES PERCENT AUTO 40.8 % (20.5-50.1); MEAN CORPUSCULAR HEMOGLOBIN 30.8 pg (27.0-34.0); MEAN CORPUSCULAR HGB CONC 33.4 g/dL (33.0-35.0); MEAN CORPUSCULAR VOLUME 92.2 fL (80-100); MONOCYTES PERCENT AUTO 12.2 % (2-8); NEUTROPHILS PERCENT AUTO 43.2 % (42.2-75.2); PLATELET COUNT,PLT 235 10^3/uL (150-450); WHITE BLOOD CELL COUNT,WBC 8.7 10^3/uL (5.0-10.0)
[2023-02-19 18:53] LABS: A/G RATIO 1.2; ALBUMIN 4.2 g/dL (3.4-5.0); ANION GAP 12.4 mEq/L (7-13); BILIRUBIN TOTAL 0.7 mg/dL (0.2-1.0); BUN/CREATININE RATIO 15.3 (No establ ref range); CALCIUM 9.3 mg/dL (8.5-10.1); CREATININE 1.11 mg/dL (0.55-1.02); EST CRCL DRUG DOSING (CG) 42.44 mL/min; POTASSIUM,K 4.4 mmol/L (3.5-5.1); PROTEIN TOTAL,TP 7.7 g/dL (6.4-8.2)
[2023-02-19 19:25] VITALS: BP 135/87; PULSE 63
== END 2023-02-19 19:31 | disposition home or self-care (01) ==
LOC: DL.ED 17:48
DX: B34.9 Viral infection, unspecified (principal); E78.00 Pure hypercholesterolemia, unspecified; J45.909 Unspecified asthma, uncomplicated; Z88.2 Allergy status to sulfonamides; Z79.899 Other long term (current) drug therapy; Z86.16 Personal history of COVID-19
CPT/HCPCS: 36415; 71046; 80053; 85025; 87804; 99283; J3490; U0002

== ENCOUNTER 2024-12-01 22:43 | Emergency (ER) | payer MEDICARE, OTHER ==
[2024-12-01] MEDS ORDERED: Sodium Chloride 0.9% 10 ML Syringe FLUSH PRN (22:57)
[2024-12-01 23:03] LABS: HEMATOCRIT 44.2 % (37.0-47.0); MEAN CORPUSCULAR HEMOGLOBIN 30.9 pg (27.0-34.0); MEAN CORPUSCULAR HGB CONC 33.9 g/dL (33.0-35.0); MEAN CORPUSCULAR VOLUME 91.1 fL (80-100); PLATELET COUNT,PLT 282 10^3/uL (150-450); RED BLOOD CELL COUNT 4.85 10^6/uL (4.2-5.4); WHITE BLOOD CELL COUNT,WBC 13.6 10^3/uL (5.0-10.0)
[2024-12-01 23:07] LABS: BASOPHILS PERCENT AUTO 0.4 % (0.0-1.0); EOSINOPHILS PERCENT AUTO 2.2 % (1.0-3.0); LYMPHOCYTES PERCENT AUTO 48.5 % (20.5-50.1); MONOCYTES PERCENT AUTO 10.8 % (2-8); NEUTROPHILS PERCENT AUTO 38.1 % (42.2-75.2)
[2024-12-01] MEDS: Pantoprazole 40 MG in Sodium Chloride 0.9% 100 ML IV ONE (23:15)
[2024-12-01] MEDS: Ondansetron 4 MG/2 ML SDV IVPUSH ONE (23:15)
[2024-12-01 23:24] LABS: INR 0.9 (0.9-1.2); PROTHROMBIN TIME 9.3 SEC (9.0-12.0)
[2024-12-01 23:25] LABS: LACTIC ACID 1.2 mmol/L (0.4-2.0)
[2024-12-01 23:31] LABS: A/G RATIO 1.1; ALBUMIN 4.1 g/dL (3.4-5.0); ANION GAP 14.9 mEq/L (7-13); BILIRUBIN TOTAL 0.7 mg/dL (0.2-1.0); BUN/CREATININE RATIO 12.5 (No establ ref range); CALCIUM 9.4 mg/dL (8.5-10.1); CREATININE 1.12 mg/dL (0.55-1.02); EST CRCL DRUG DOSING (CG) 40.86 mL/min; POTASSIUM,K 3.9 mmol/L (3.5-5.1); PROTEIN TOTAL,TP 7.8 g/dL (6.4-8.2)
[2024-12-01] MEDS: Sodium Chloride 0.9% 1,000 ML IV ONE (23:45)
[2024-12-01] MEDS: Iopamidol 612 MG/ML 100 ML Bottle IVPUSH ONE (23:59)
[2024-12-02 00:05] LABS: EOSINOPHILS PERCENT MAN 1 % (1-3); LYMPHOCYTES PERCENT MAN 45 % (20-50); MONOCYTES PERCENT MAN 9 % (2-8); SEG NEUTROPHILS PERCENT MAN 45 % (42-75)
[2024-12-02 00:51] LABS: APPEARANCE,URINE CLEAR (CLEAR); BILIRUBIN,URINE NEGATIVE (NEGATIVE); GLUCOSE,URINE NEGATIVE (NEGATIVE); KETONES,URINE NEGATIVE (NEGATIVE); LEUKOCYTE ESTERASE,URINE NEGATIVE (NEGATIVE); NITRITE,URINE NEGATIVE (NEGATIVE); OCCULT BLOOD,URINE MODERATE (NEGATIVE); PROTEIN,URINE NEGATIVE (NEGATIVE)
[2024-12-02 00:52] LABS: COLOR,URINE LIGHT YELLOW (YELLOW)
[2024-12-02] MEDS: Take Home: Ondansetron 4 MG Tab.DIS, 5 Tab Pack PO ONE (01:08)
[2024-12-02 01:23] VITALS: BP 114/65; PULSE 78
[2024-12-02 04:24] LABS: BACTERIA,URINE RARE /HPF (0-FEW/HPF); EPITHELIAL CELLS,URINE RARE /HPF (NOT SEEN); WBC,URINE 0-5 /HPF (0-5/HPF)
== END 2024-12-02 01:19 | disposition home or self-care (01) ==
LOC: DL.ED 22:43
DX: K21.9 Gastro-esophageal reflux disease without esophagitis (principal); K22.4 Dyskinesia of esophagus; E78.00 Pure hypercholesterolemia, unspecified; J45.909 Unspecified asthma, uncomplicated; Z86.16 Personal history of COVID-19; Z90.49 Acquired absence of other specified parts of digestive tract; Z90.710 Acquired absence of both cervix and uterus; Z79.899 Other long term (current) drug therapy; Z88.2 Allergy status to sulfonamides
CPT/HCPCS: 36415; 71045; 74177; 80053; 81001; 83605; 83690; 83735; 83880; 84484; 85025; 85379; 85610; 93005; 96361; 96365; 96375; 99285; J2405; J2470; J7030; Q0162; Q9967; 93010; 99284